=== PATIENT | male | born 1960 | race Two or more races ===

== ENCOUNTER 2025-03-02 22:07 | Inpatient (IN) | payer OTHER ==
[~2025-03-02] VITALS: Ht 167.6 cm; Wt 66.8 kg
--- NOTE | 2025-03-02 22:39 | ED.PDOC ---
History of Present Illness HPI Comments 65-year-old male with a history of diabetes and CAD status post CABG brought in by EMS from home for evaluation of hyperglycemia. Per EMS, patient's friends noticed he was less responsive than normal, and called 911. Patient states he has felt generally weak since yesterday, associated with nausea, vomiting and diarrhea. EMS reports patient's blood glucose was 401, and initial BP was 60 systolic. They administered 1 L of IV normal saline, which improved the patient's blood pressure to 122/79. Patient denies any abdominal pain, fever or dysuria. Chief Complaint: Hyperglycemia Time Seen by MD: 22:38 Reviewed Notes: Operations Staff Specialist Security Notes Allergies: Coded Allergies: NO KNOWN ALLERGIES (Unverified , 03/02/25) Information Source: Patient, Emergency Med Personnel Mode of Arrival: EMS Severity: Moderate Timing: Hours Duration: Since onset Prehospital treatment: IVF Past Medical History PAST MEDICAL HISTORY: CAD, DM Surgical History: CABG Family History Family History: Reviewed,noncontributory to illness Social History Smoker: Non-Smoker Alcohol: Denies ETOH Use Drugs: Denies Drug Use Lives In: Home Constitutional: reports: fatigue, weakness; denies: chills, diaphoresis, fever, malaise, sweats, others EENTM: denies: blurred vision, double vision, ear bleeding, ear discharge, ear drainage, ear pain, ear ringing, eye pain, eye redness, hearing loss, mouth pain, mouth swelling, nasal discharge, nose bleeding, nose congestion, nose pain, photophobia, tearing, throat pain, throat swelling, voice changes, others Respiratory: denies: cough, hemoptysis, orthopnea, SOB at rest, shortness of breath, SOB with excertion, stridor, wheezing, others Cardiovascular: denies: chest pain, dizzy spells, diaphoresis, Dyspnea on exertion, edema, irregular heart beat, left arm pain, lightheadedness, palpitations, PND, syncope, others Gastrointestinal: reports: nausea, vomiting; denies: abdomen distended, abdominal pain, blood streaked bowels, constipated, diarrhea, dysphagia, difficulty swallowing, hematemesis, melena, poor appetite, poor fluid intake, rectal bleeding, rectal pain, others Genitourinary: denies: burning, dysuria, flank pain, frequency, hematuria, incontinence, penile discharge, penile sore, pain, testicle pain, testicle swelling, urgency, others Neurological: denies: dizziness, fainting, headache, left sided numbness, left sided weakness, numbness, paresthesia, pre-existing deficit, right sided numbness, right sided weakness, seizure, speech problems, tingling, tremors, weakness, others Musculoskeletal: denies: back pain, gout, joint pain, joint swelling, muscle pain, muscle stiffness, neck pain, others Integumetry: denies: bruises, change in color, change in hair/nails, dryness, laceration, lesions, lumps, rash, wounds, others Allergic/Immunocompromised: denies: Difficulty Healing, Frequent Infections, Hives, Itching, others Hematologic/Lymphatic: denies: anemia, blood clots, easy bleeding, easy bruising, swollen glands, others Endocrine: denies: excessive hunger, excessive sweating, excessive thirst, excessive urination, flushing, intolerance to cold, intolerance to heat, unexplained weight gain, unexplained weight loss, others Psychiatric: denies: anxiety, bipolar disorder, depression, hopeless, panic disorder, schizophrenia, sleepless, suicidal, others Physical Exam General Appearance: No Apparent Distress HEENT: Other (Pupils and face symmetric. Moist mucous membranes.) Neck: Full Range of Motion, Normal Inspection Respiratory: Lungs Clear, No Accessory Muscle Use, No Respiratory Distress, Normal Breath Sounds Cardiovascular: No Edema, No JVD, Regular Rate/Rhythm Breast Exam: Deferred Gastrointestinal: Non Tender, Soft Genitalia: Deferred Pelvic: Deferred Rectal: Deferred Extremities: Normal inspection, Normal range of motion, Non-tender, No pedal edema Neurologic: Alert (Oriented x4), Normal Affect, Normal Mood, Other (No gross focal deficit) Cerebellar Function: NOT DONE Reflexes: NOT DONE Skin: Dry, Normal Color, Warm Lymphatic: NOT DONE Was a procedure done? Was a procedure done?: No EKG EKG : Comments Sinus rhythm, rate 97, normal intervals, normal axis, possible old inferior infarct, nonspecific T change. Differential Dx Considerations may include: Hyperglycemia, hyperglycemic hyperosmolar state, DKA, gastroenteritis, gastritis, colitis, diverticular disease, UTI, sepsis, electrolyte imbalance, hypovolemia, among others X-Ray, Labs, Meds, VS Vital Signs Date Time Temp Pulse Resp B/P (MAP) Pulse Ox O2 Delivery O2 Flow Rate FiO2 7/12/25 02:32 16 97 Room Air* 0 21 21 03/03/25 02:04 98 19 96 Room Air* 0 21 03/03/25 02:04 98.1 98 19 124/75 (91) 96 98.1 03/02/25 22:07 98.4 94 18 5/7 (6) 97 98.4 Lab Test 03/03/25 01:25 03/03/25 01:08 03/03/25 01:02 03/02/25 22:31 Range/Units Troponin I High Sensitivity 1204 *H 820 *H </=54 ng/L POC Glucose 367 H 370 H 70-106 mg/dl White Blood Count 12.9 H 4.4-10.8 10^3/uL Red Blood Count 5.06 4.5-5.90 10^6/uL Hemoglobin 15.0 13.5-17.5 g/dL Hematocrit 46.1 41.0-53.0 % Mean Corpuscular Volume 91.2 80.0-100.0 fL Mean Corpuscular Hemoglobin 29.7 28.0-32.0 pg Mean Corpuscular Hemoglobin Concent 32.6 32.0-36.0 g/dL Red Cell Distribution Width 15.2 H 11.8-14.3 % Platelet Count 171 140-450 10^3/uL Mean Platelet Volume 10.6 6.9-10.8 fL Neutrophils (%) (Auto) 85.1 H 37.0-80.0 % Lymphocytes (%) (Auto) 9.4 L 10.0-50.0 % Monocytes (%) (Auto) 5.4 0.0-12.0 % Eosinophils (%) (Auto) 0.0 0.0-7.0 % Basophils (%) (Auto) 0.1 0.0-2.0 % Neutrophils # (Auto) 11.0 H 1.6-8.6 10 ^3/uL Lymphocytes # (Auto) 1.2 0.4-5.4 10 ^3/uL Monocytes # (Auto) 0.7 0-1.3 10 ^3/uL Eosinophils # (Auto) 0 0-0.8 10 ^3/uL Basophils # (Auto) 0 0-0.2 10 ^3/uL Nucleated Red Blood Cells 0.0 % Sodium Level 139 136-145 mmol/L Potassium Level 6.2 *H 3.5-5.1 mmol/L Chloride Level 108 H 98-107 mmol/L Carbon Dioxide Level 17 L 20-31 mmol/L Anion Gap 14 5-15 Blood Urea Nitrogen 50 H 9-23 mg/dL Creatinine 4.10 H 0.700-1.30 mg/dL Glomerular Filtration Rate Calc 15 >90 mL/min BUN/Creatinine Ratio 12.2 10.0-20.0 Serum Glucose 386 H 74-106 mg/dL Lactic Acid Level 3.1 *H 0.4-2.0 mmol/L Calcium Level 9.5 8.7-10.4 mg/dL B-Type Natriuretic Peptide 90.43 0-100 pg/mL Beta-Hydroxybutyric Acid 0.576 H < 0.4 mmol/L Current Medications Medications (Trade) Dose Ordered Sig/Swetha Route Start Time Stop Time Status Last Admin Insulin Human Regular (InsuLIN R) 6 units ONCE ONCE IV 03/02/25 23:45 03/02/25 23:46 DC 03/03/25 01:04 Albuterol (Ventolin Medneb) 20 mg ONCE ONCE NEB 03/03/25 02:15 03/03/25 02:23 DC 03/03/25 02:32 PROCEDURE(s): CXRP - CHEST PORTABLE REASON: hypergly ORDER NUMBER(s): [id number], ACCESSION NUMBER(s): [id number] INDICATION: SOB TECHNIQUE: Frontal view of the chest. COMPARISON: None FINDINGS/IMPRESSION: The lungs are clear. The cardiomediastinal silhouette is unremarkable. Median sternotomy changes are noted. No pleural effusion or pneumothorax. No acute osseous abnormality. EDURE(s): ABPL - CT AB PEL WO CON-NO ORAL OR IV REASON: nvd ORDER NUMBER(s): [id number], ACCESSION NUMBER(s): [id number] Exam: CT CT AB PEL WO CON-NO ORAL OR IV History: nvd Comparison Study: None TECHNIQUE: Multidetector CT of the abdomen and pelvis was performed from lung bases to pubic symphysis. Imaging was performed without IV contrast. Axial, coronal, and sagittal multiplanar reformats were obtained from the axial data set by the technologist. RADIATION DOSE: CTDI vol 5.96 mGy. DLP 372.58 mGy.cm Findings: Limited evaluation of the solid organs in the absence of IV contrast. Liver: Unremarkable. Spleen: Unremarkable. Pancreas: Unremarkable. Gallbladder: Cholelithiasis/biliary sludge. Adrenals: Unremarkable Kidneys: Punctate nonobstructing right renal calculus. No hydronephrosis. Pelvic Viscera: Unremarkable. Vasculature: Mild atherosclerotic aortoiliac calcifications. Retroperitoneum: Shotty retroperitoneal nodes. Bowel: No bowel obstruction. The appendix is normal. Musculoskeletal: Unremarkable. Soft tissues: Unremarkable Lungs: Basilar atelectasis/scarring. Incompletely visualized median sternotomy changes and severe coronary artery calcifications versus stents. Impression: 1. No acute abdominopelvic abnormality identified. 2. Incidental findings as detailed. X-Ray, Labs, Meds, VS Comment 65-year-old male with a history of diabetes and CAD brought in by EMS from home complaining of nausea, vomiting, diarrhea and found to be hyperglycemic and initially hypotensive Vitals unremarkable Exam unremarkable Rhythm strip independently interpreted by me: Sinus rhythm, rate 94, no ectopy. Chest x-ray and CT abdomen and pelvis unremarkable for any acute findings CBC WBC 12.9, basic metabolic panel potassium 6.2, CO2 17, BUN 50, creatinine 4.1, glucose 386, BNP, troponin 820, lactate 3.1, beta hydroxybutyrate, ABG, UA Patient received 1 L 0.9 normal saline IV bolus administered by EMS EN route to the ED Patient treated with the following in the ED: Regular insulin 6 units IV, Zofran 4 mg IV, regular insulin 4 units IV, Lokelma 10 g p.o., sodium bicarb 50 mEq IV, calcium gluconate 1 g IV, albuterol 20 mg nebulized, aspirin 325 mg p.o. On re-evaluation, patient is alert with stable vitals. Plan is to admit or transfer the patient for IV hydration, electrolyte correction, glucose control and nephrology/cardiology evaluation At 2:45 a.m. I discussed the case with Dr. Guthrie, on-call for STEMI. He reviewed the EKG and stated this was not consistent with a STEMI. He recommended medical management. Case discussed with Dr. Phipps at [place] [facility], who authorized us to admit the patient here, as he currently appears unstable for transfer. Authorization [id number] Time of 1ST Reevaluation: 22:34 Reevaluation 1ST: Unchanged Time of 2ND Reevaluation: 02:37 Reevaluation 2ND: Improved Patient Education/Counseling: Diagnosis, Treatment Family Education/Counseling: No Family Present SEPSIS Sepsis Screen SEPSIS EXCLUSION NOTE: Sepsis Exclusion Note: Patient presents with SIRS criteria, but the SIRS response is attributed to [hyperglycemia, acute renal failure ], not a suspected infection. Sepsis bundle is not initiated at this time, due to this reason. Further management will focus on the treatment of the above condition (s). Physician Orders Chest Portable (03/02/25 23:34) Urinalysis (03/02/25 23:34) Electrocardigram (03/02/25 23:34) Abg W/ Co-Ox (03/02/25 23:34) Troponin-I Hs (03/03/25 02:34) Blood Culture (03/02/25 23:34) Ct Ab Pel Wo Con-No Oral Or Iv (03/02/25 23:34) Accucheck (03/03/25 02:20) Vital Signs Date Time Temp Pulse Resp B/P (MAP) Pulse Ox O2 Delivery O2 Flow Rate FiO2 03/03/25 02:32 16 97 Room Air* 0 21 21 03/03/25 02:04 98 19 96 Room Air* 0 21 03/03/25 02:04 98.1 98 19 124/75 (91) 96 98.1 03/02/25 22:07 98.4 94 18 5/7 (6) 97 98.4 Laboratory Tests Test 03/03/25 01:02 Lactic Acid Level 3.1 mmol/L (0.4-2.0) *H White Blood Count 12.9 10^3/uL (4.4-10.8) H Medications Medications Dose Ordered Sig/Swetha Route Start Time Stop Time Status Last Admin Dose Admin Albuterol 20 mg ONCE ONCE NEB 03/03/25 02:15 03/03/25 02:23 DC 03/03/25 02:32 Insulin Human Regular 6 units ONCE ONCE IV 03/02/25 23:45 03/02/25 23:46 DC 03/03/25 01:04 Departure 1 Departure Time of Disposition: 02:24 Impression: Primary Impression: Hyperglycemia Additional Impressions: Acute renal failure Qualified Codes: N17.9 - Acute kidney failure, unspecified Electrolyte imbalance Vomiting and diarrhea Non-STEMI (non-ST elevated myocardial infarction) Disposition: 02 SHORT TERM HOSPITAL Admit to: [facility] Condition: Serious Critical Care Note Critical Care Time?: Yes (35 min-critical care time only) Critical care comment: Critical care time including multiple bedside re-evaluations, review of lab and imaging studies, and discussion of the case with the accepting provider. Patient is high risk for hemodynamic and/or metabolic decompensation. Stability Stability form required: No Heart Score Heart Score: Heart Score Response (Comments) Value History N/A 0 EKG N/A 0 Age N/A 0 Risk Factors N/A 0 Troponin N/A 0 Total 0 I personally scribed for ANDREW IGNACIO MD ([email or web address]) on 03/02/25 at 22:39. Electronically submitted by Cleveland Desai ([facility]). ANDREW IGNACIO MD Mar 02, 2025 22:39
[2025-03-03] MEDS: InsuLIN REG 1unit/0.01ml Soln (100units/ml) IV ONE ×2 (01:04→03:18)
--- NOTE | 2025-03-03 01:39 | DVH ---
INDICATION: SOB TECHNIQUE: Frontal view of the chest. COMPARISON: None FINDINGS/IMPRESSION: The lungs are clear. The cardiomediastinal silhouette is unremarkable. Median sternotomy changes are noted. No pleural effusion or pneumothorax. No acute osseous abnormality.
[2025-03-03 01:42] LABS: Hematocrit 46.1 % (41.0-53.0); Hemoglobin 15.0 g/dL (13.5-17.5); Mean Corpuscular Hemoglobin 29.7 pg (28.0-32.0); Mean Corpuscular Volume 91.2 fL (80.0-100.0); Nucleated Red Blood Cells % 0.0 %
[2025-03-03 01:51] LABS: Anion Gap 14 (5-15); Sodium 139 mmol/L (136-145)
--- NOTE | 2025-03-03 01:51 | DVH ---
Exam: CT CT AB PEL WO CON-NO ORAL OR IV History: nvd Comparison Study: None TECHNIQUE: Multidetector CT of the abdomen and pelvis was performed from lung bases to pubic symphysi s. Imaging was performed without IV contrast. Axial, coronal, and sagittal multiplanar reformats were obtained from the axial data set by the technologist. RADIATION DOSE: CTDI vol 5.96 mGy. DLP 372.58 mGy.cm Findings: Limited evaluation of the solid organs in the absence of IV contrast. Liver: Unremarkable. Spleen: Unremarkable. Pancreas: Unremarkable. Gallbladder: Cholelithiasis/biliary sludge. Adrenals: Unremarkable Kidneys: Punctate nonobstructing right renal calculus. No hydronephrosis. Pelvic Viscera: Unremarkable. Vasculature: Mild atherosclerotic aortoiliac calcifications. Retroperitoneum: Shotty retroperitoneal nodes. Bowel: No bowel obstruction. The appendix is normal. Musculoskeletal: Unremarkable. Soft tissues: Unremarkable Lungs: Basilar atelectasis/scarring. Incompletely visualized median sternotomy changes and severe cor onary artery calcifications versus stents. Impression: 1. No acute abdominopelvic abnormality identified. 2. Incidental findings as detailed.
[2025-03-03 01:52] LABS: Calcium 9.5 mg/dL (8.7-10.4)
[2025-03-03 01:55] LABS: Carbon Dioxide 17 mmol/L (20-31); Chloride 108 mmol/L (98-107); Potassium 6.2 mmol/L (3.5-5.1)
[2025-03-03 01:56] LABS: BUN/Creatinine Ratio 12.2 (10.0-20.0)
[2025-03-03 01:57] LABS: Blood Urea Nitrogen 50 mg/dL (9-23); Glucose 386 mg/dL (74-106)
[2025-03-03 02:00] LABS: Lactic Acid w/Reflex 3.1 mmol/L (0.4-2.0)
[2025-03-03 02:04] VITALS: PULSE 98; RESP 19; O2SAT 96
[2025-03-03] MEDS: ALBUTEROL SULF 2.5 MG/0.5ML(0.5%) NEB SOLN NEB ONE (02:32)
[2025-03-03] MEDS: SODIUM ZIRCONIUM CYCL 10 GM PAK PO ONE (03:19)
[2025-03-03] MEDS: SODIUM BICARB 8.4% 50Meq/50ml SYR Vial IV ONE (03:36)
[2025-03-03] MEDS: CALCIUM GLUC 1,000mg/50ml-NS 50 ML IV ONE (04:20)
[2025-03-03] MEDS ORDERED: DOCUSATE SOD 100 MG CAP PO PRN (05:30)
[2025-03-03] MEDS ORDERED: ALBUTEROL SULF 2.5 MG/0.5ML(0.5%) NEB SOLN NEB PRN (05:30)
[2025-03-03] MEDS ORDERED: ACETAMINOPHEN 325 MG TAB PO PRN (05:30)
[2025-03-03] MEDS ORDERED: DEXTROSE (50%) 50ML SYRG IV PRN (05:30)
[2025-03-03] MEDS ORDERED: ONDANSETRON HCL 4 MG/2 ML VIAL IV PRN (05:30)
[2025-03-03] MEDS ORDERED: NITROGLYCERIN 0.4 MG SL TAB SL PRN (05:45)
[2025-03-03] MEDS ORDERED: MORPHINE SULFATE INJ 2 MG/ml SYRG IV PRN (05:45)
--- NOTE | 2025-03-03 05:45 | DVHHP2 ---
History of Present Illness Reason for Visit: Non-STEMI (non-ST elevated myocardial infarction) History of Present Illness The patient is a 65-year-old male with past medical history of Coronary artery disease diabetes mellitus presented to [facility] ED for evaluation of hyperglycemia. As reported, patient was noted to be altered, so EMS were called. Patient reports he has been feeling generalized weakness, associated with nausea, vomiting, and diarrhea, getting worse that prompted this visit. Patient was seen and evaluated in the ED, laboratory data shows WBC 12.9, platelets 171, sodium 139, potassium 6.2, BUN 50, creatinine 4.10, glucose 366, calcium 9.5, BNP 90.43, acetone 0.576, lactic acid 3.1, troponin 820 trending up, blood pressure 124/75, heart rate 98, temperature 98.1 F, O2 saturation 97% room..8, BNP 139.75, troponin 173, blood pressure 121/61, heart rate 83, temperature 98.5 F, O2 saturation 96% room air. Please see medication orders section in the computer. On my assessment, patient denied chest pain, no headache, no dizziness, currently on oxygen, no nausea, no vomiting, no fever, no chills. Patient was admitted for further evaluation and medical management. Past Medical History CAD, DM Past Surgical History CABG Family History Reviewed, noncontributory to the management of this case. Past Social History The patient lives at home, denies smoking, alcohol or illicit drugs abuse. Review of Systems Constitutional: Yes: Weakness, Other (Fatigue) Eyes: No: Pain, Vision change, Conjunctivae inflammation, Eyelid inflammation, Other, Redness ENT: No: Ear pain, Ear discharge, Nose pain, Nose discharge, Nose congestion, Mouth pain, Mouth swelling, Throat pain, Throat swelling, Other Respiratory: No: Cough, Dry, Shortness of breath, SOB with excertion, Wheezing, Hemoptysis, Pleuritic Pain, Sputum, Wheezing, Other Cardiovascular: No: Chest Pain, Palpitations, Orthopnea, Paroxysmal Noc. Dyspnea, Edema, Lt Headedness, Other Gastrointestinal: Nausea, Vomiting; No: Abdominal Pain, Diarrhea, Constipation, Melena, Hematochezia, Other Genitourinary: No Dysuria, No Frequency, No Incontinence, No Hematuria, No Retention, No Other Musculoskeletal: No: other, neck pain, shoulder pain, arm pain, back pain, hand pain, leg pain, foot pain Skin: No: Rash, Lesions, Jaundice, Bruising, Other Neurological: No: Weakness, Numbness, Incoordination, Change in speech, Confusion, Seizures, Other Allergies: Coded Allergies: NO KNOWN ALLERGIES (Unverified , 03/02/25) Medications Current Medications Medications Dose Ordered Sig/Swetha Route Start Time Stop Time Status Last Admin Dose Admin Aspirin 81 mg DAILY PO 03/04/25 06:00 Atorvastatin Calcium 10 mg HS PO 03/03/25 22:00 Ceftriaxone Sodium 50 ml @ 100 mls/hr DAILY@09 IV 03/04/25 06:00 Carvedilol 3.125 mg Q12HR PO 03/03/25 10:00 Clonidine HCl 0.1 mg Q4HP PRN PO 03/03/25 05:30 Diagnostic Test (Pha) 1 strip IQ4HR 03/03/25 08:00 Insulin Human Regular IQ4HR SC 03/03/25 08:00 Dextrose 50 ml UD PRN IV 03/03/25 05:30 Sodium Chloride 10 ml Q8HR IV 03/03/25 06:00 Acetaminophen/ Hydrocodone Bitart 1 tab Q4HP PRN PO 03/03/25 05:30 Ondansetron HCl 4 mg Q4HP PRN IV 03/03/25 05:30 Docusate Sodium 100 mg BIDPRN PRN PO 03/03/25 05:30 Acetaminophen 650 mg Q6HP PRN PO 03/03/25 05:30 Heparin Sodium/ Dextrose 250 ml @ 9 mls/hr Q24H IV 03/03/25 05:45 UNV Exam Vital Signs Vital Signs Date Time Temp Pulse Resp B/P (MAP) Pulse Ox O2 Delivery O2 Flow Rate FiO2 03/03/25 02:37 97 03/03/25 02:32 16 97 Room Air* 0 21 21 03/03/25 02:04 98.1 124/75 (91) 98.1 General Appearance: Alert, Oriented X3, Cooperative, No acute distress HEENT: Atraumatic, PERRLA, EOMI, Mucous membr. moist/pink Respiratory: Normal air movement Cardiovascular: Regular rate, Normal S1, Normal S2, No murmurs Abdominal: Normal bowel sounds, Soft, No tenderness, No hepatospenomegaly, No masses Extremities: No clubbing, No cyanosis, No edema, Normal pulses, No tenderness/swelling Skin: No rashes, No breakdown, No significant lesion Neuro: Normal speech, Normal tone, Sensation intact, Cranial nerves 3-12 NL, Reflexes 2+, Other (Generalized weakness) Psych/Mental Status: Mental status NL, Mood NL Labs/Xrays Labs Test 03/03/25 04:37 03/03/25 03:12 03/03/25 03:10 03/03/25 01:02 Range/Units Troponin I High Sensitivity 1683 *H </=54 ng/L POC Glucose 378 H 70-106 mg/dl Lactic Acid Level 3.9 *H 0.4-2.0 mmol/L White Blood Count 12.9 H 4.4-10.8 10^3/uL Red Blood Count 5.06 4.5-5.90 10^6/uL Hemoglobin 15.0 13.5-17.5 g/dL Hematocrit 46.1 41.0-53.0 % Mean Corpuscular Volume 91.2 80.0-100.0 fL Mean Corpuscular Hemoglobin 29.7 28.0-32.0 pg Mean Corpuscular Hemoglobin Concent 32.6 32.0-36.0 g/dL Red Cell Distribution Width 15.2 H 11.8-14.3 % Platelet Count 171 140-450 10^3/uL Mean Platelet Volume 10.6 6.9-10.8 fL Neutrophils (%) (Auto) 85.1 H 37.0-80.0 % Lymphocytes (%) (Auto) 9.4 L 10.0-50.0 % Monocytes (%) (Auto) 5.4 0.0-12.0 % Eosinophils (%) (Auto) 0.0 0.0-7.0 % Basophils (%) (Auto) 0.1 0.0-2.0 % Neutrophils # (Auto) 11.0 H 1.6-8.6 10 ^3/uL Lymphocytes # (Auto) 1.2 0.4-5.4 10 ^3/uL Monocytes # (Auto) 0.7 0-1.3 10 ^3/uL Eosinophils # (Auto) 0 0-0.8 10 ^3/uL Basophils # (Auto) 0 0-0.2 10 ^3/uL Nucleated Red Blood Cells 0.0 % Sodium Level 139 136-145 mmol/L Potassium Level 6.2 *H 3.5-5.1 mmol/L Chloride Level 108 H 98-107 mmol/L Carbon Dioxide Level 17 L 20-31 mmol/L Anion Gap 14 5-15 Blood Urea Nitrogen 50 H 9-23 mg/dL Creatinine 4.10 H 0.700-1.30 mg/dL Glomerular Filtration Rate Calc 15 >90 mL/min BUN/Creatinine Ratio 12.2 10.0-20.0 Serum Glucose 386 H 74-106 mg/dL Calcium Level 9.5 8.7-10.4 mg/dL B-Type Natriuretic Peptide 90.43 0-100 pg/mL Beta-Hydroxybutyric Acid 0.576 H < 0.4 mmol/L PATIENT: LISANDRO RICE ACCT: [id number] UNIT: [id number] : 1960 LOC: ER ROOM / BED: / AGE / SEX: 65 / M ADM STATUS: REG ER SERVICE [id number] ORDERING PHYSICIAN: ANDREW IGNACIO MD PROCEDURE(s): ABPL - CT AB PEL WO CON-NO ORAL OR IV REASON: nvd ORDER NUMBER(s): [id number], ACCESSION NUMBER(s): [id number] Exam: CT CT AB PEL WO CON-NO ORAL OR IV History: nvd Comparison Study: None TECHNIQUE: Multidetector CT of the abdomen and pelvis was performed from lung bases to pubic symphysis. Imaging was performed without IV contrast. Axial, coronal, and sagittal multiplanar reformats were obtained from the axial data set by the technologist. RADIATION DOSE: CTDI vol 5.96 mGy. DLP 372.58 mGy.cm Findings: Limited evaluation of the solid organs in the absence of IV contrast. Liver: Unremarkable. Spleen: Unremarkable. Pancreas: Unremarkable. Gallbladder: Cholelithiasis/biliary sludge. Adrenals: Unremarkable Kidneys: Punctate nonobstructing right renal calculus. No hydronephrosis. Pelvic Viscera: Unremarkable. Vasculature: Mild atherosclerotic aortoiliac calcifications. Retroperitoneum: Shotty retroperitoneal nodes. Bowel: No bowel obstruction. The appendix is normal. Musculoskeletal: Unremarkable. Soft tissues: Unremarkable Lungs: Basilar atelectasis/scarring. Incompletely visualized median sternotomy changes and severe coronary artery calcifications versus stents. Impression: 1. No acute abdominopelvic abnormality identified. 2. Incidental findings as detailed. ORDERING PHYSICIAN: ANDREW IGNACIO MD PROCEDURE(s): CXRP - CHEST PORTABLE REASON: hypergly ORDER NUMBER(s): [id number], ACCESSION NUMBER(s): [id number] INDICATION: SOB TECHNIQUE: Frontal view of the chest. COMPARISON: None FINDINGS/IMPRESSION: The lungs are clear. The cardiomediastinal silhouette is unremarkable. Median sternotomy changes are noted. No pleural effusion or pneumothorax. No acute osseous abnormality. SEPSIS Sepsis Screen Date sepsis recognized/suspect: Mar 02, 2025 Time Sepsis recognized/suspect: 2206 Recent Procedure: No On Antibiotic Therapy: No Respiratory Rate >20: No Heart Rate >90: No Temp<36 C (96.8 F) or >38.3 C: No SBP <90 or MAP <65 mmHG: No New Acute Mental Status Change: No Is the patient on CPAP, BIPAP,: No Physician Orders Chest Portable (03/02/25 23:34) Urinalysis (03/02/25 23:34) Electrocardigram (03/02/25 23:34) Abg W/ Co-Ox (03/02/25 23:34) Blood Culture (03/02/25 23:34) Ct Ab Pel Wo Con-No Oral Or Iv (03/02/25 23:34) Accucheck (03/03/25 02:20) Complete Blood Count (03/03/25 05:16) Comprehensive Metabolic Panel (03/03/25 05:16) Consistent Carb(Ccho)Diabetes (03/03/25 Breakfast) *[facility]. [facility] (03/03/25 05:16) Atorvastatin (Lipitor) (03/03/25 22:00) Ceftriaxone 1gm/50ml D5w (Rocephin) (03/03/25 05:30) Carvedilol Tablet (Coreg Tablet) (03/03/25 10:00) Clonidine Hcl Tablet (Catapres Tablet) (03/03/25 05:30) * Cardiology Consult (03/03/25 05:16) Glucose Blood (Accu-Chek Comfort Curve T (03/03/25 08:00) Insulin R (Human) (Insulin R) (03/03/25 08:00) Dextrose 50% Syringe (03/03/25 05:30) Allergies (03/03/25 05:16) Code Status (03/03/25 05:16) Sodium Chloride Lock (Saline Lock Ns) (03/03/25 06:00) Oxygen Per Hour (03/03/25 05:16) Hydrocodone-Acet 5/325mg Tab ([place] 5/32 (03/03/25 05:30) Ondansetron Hcl (Zofran) (03/03/25 05:30) Docusate Sodium Capsule (Colace Capsule) (03/03/25 05:30) Complete Blood Count (03/04/25 04:00) Comprehensive Metabolic Panel (03/04/25 04:00) Condition: Serious (03/03/25 05:16) Acetaminophen Tablet (Tylenol Tablet) (03/03/25 05:30) Bedrest With Bathroom Privileg (03/03/25 05:16) Sequential Compression Device (03/03/25 ) Aspirin Tablet (03/04/25 06:00) Ceftriaxone 1gm/50ml D5w (Rocephin) (03/04/25 06:00) Platelet Monitoring (03/03/25 05:39) Heparin Per Standardized Proce (03/03/25 05:39) Discontinue All Im Injections (03/03/25 05:39) PTPTT (03/03/25 05:39) Heparin Drip/D5w 100units/Ml (03/03/25 05:45) Stat Ekg For Chest Pain (03/03/25 05:39) Admit (03/03/25 05:42) Nitroglycerin Sublingual (Ntrostat Subli (03/03/25 05:45) Morphine Sulfate Injection (03/03/25 05:45) Notify Md Of Changes From Base (03/03/25 05:42) Tariff Compiling Clerk For 24 Hours (03/03/25 05:42) Emergency Dysrhythmia Protocol (03/03/25 05:42) Rhythm Strips Once Every Shift (03/03/25 05:42) Oxygen By Nasal Cannula (03/03/25 05:42) Vital Signs Date Time Temp Pulse Resp B/P (MAP) Pulse Ox O2 Delivery O2 Flow Rate FiO2 03/03/25 02:37 97 03/03/25 02:32 16 97 Room Air* 0 21 21 03/03/25 02:04 98 19 96 Room Air* 0 21 03/03/25 02:04 98.1 98 19 124/75 (91) 96 98.1 03/02/25 22:07 98.4 94 18 5/7 (6) 97 98.4 Laboratory Tests Test 03/03/25 01:02 03/03/25 03:10 Lactic Acid Level 3.1 mmol/L (0.4-2.0) *H 3.9 mmol/L (0.4-2.0) *H White Blood Count 12.9 10^3/uL (4.4-10.8) H Medications Medications Dose Ordered Sig/Swetha Route Start Time Stop Time Status Last Admin Dose Admin Albuterol 20 mg ONCE ONCE NEB 03/03/25 02:15 03/03/25 02:23 DC 03/03/25 02:32 20 MG Aspirin 325 mg ONCE ONCE PO 03/03/25 02:15 03/03/25 02:23 DC 03/03/25 03:19 325 MG Calcium Gluconate/ Sodium Chloride 50 ml @ 100 mls/hr ONCE ONCE IV 03/03/25 02:15 03/03/25 02:44 DC 03/03/25 04:20 100 MLS/HR Insulin Human Regular 4 units ONCE ONCE IV 03/03/25 02:15 03/03/25 02:23 DC 03/03/25 03:18 4 UNITS Insulin Human Regular 6 units ONCE ONCE IV 03/02/25 23:45 03/02/25 23:46 DC 03/03/25 01:04 6 UNITS Sodium Bicarbonate 50 ml ONCE ONCE IV 03/03/25 02:15 03/03/25 02:23 DC 03/03/25 03:36 50 ML Zirconium Oxide 10 gm ONCE ONCE PO 03/03/25 02:15 03/03/25 02:23 DC 03/03/25 03:19 10 GM Assessment/Plan Assessment/Plan Acute renal failure Diabetes mellitus with hyperglycemia Acute kidney failure, unspecified Electrolyte imbalance Vomiting and diarrhea Non-STEMI (non-ST elevated myocardial infarction) Plan 1. Admit to telemetry unit 2. Breathing treatment 3. Pain control management 4. Management of fluids and electrolytes 5. Consultation for Nephrology/cardiology 6. Diagnostic tests chest x-ray 7. DVT prophylaxis on heparin drip 8. Repeat labs CBC, CMP in a.m. 9. Continue with current medical management 10. Treatment plan discussed with patient and RN. Patient verbalized understanding. Plan discussed with: Patient, Other (RN) My Orders Orders - DARRELL MEEKS DNP Procedure Category Date Status Time Complete Blood Count LAB 03/03/25 Logged 05:16 Comprehensive LAB 03/03/25 Logged Metabolic Panel 05:16 Consistent DIET 03/03/25 Transmitted Carb(Ccho)Diabetes Breakfast *Dr. [facility] CONS 03/03/25 Transmitted -[place] 05:16 Atorvastatin (Lipitor) PHA 03/03/25 In Process 22:00 Ceftriaxone 1gm/50ml PHA 03/03/25 In Process D5w (Rocephin) 05:30 Carvedilol Tablet PHA 03/03/25 In Process (Coreg Tablet) 10:00 Clonidine Hcl Tablet PHA 03/03/25 In Process (Catapres Tablet) 05:30 * Cardiology Consult CONS 03/03/25 Transmitted 05:16 Glucose Blood PHA 03/03/25 In Process (Accu-Chek Comfort 08:00 Insulin R (Human) PHA 03/03/25 In Process (Insulin R) 08:00 Dextrose 50% Syringe PHA 03/03/25 In Process 05:30 Allergies VAZQUEZ 03/03/25 In Process 05:16 Code Status CODE 03/03/25 Transmitted 05:16 Sodium Chloride Lock PHA 03/03/25 In Process (Saline Lock Ns) 06:00 Oxygen Per Hour RT 03/03/25 Transmitted 05:16 Hydrocodone-Acet PHA 03/03/25 In Process 5/325mg Tab ([place] 05:30 Ondansetron Hcl PHA 03/03/25 In Process (Zofran) 05:30 Docusate Sodium PHA 03/03/25 In Process Capsule (Colace 05:30 Complete Blood Count LAB 03/04/25 Verified 04:00 Comprehensive LAB 03/04/25 Verified Metabolic Panel 04:00 Condition: Serious VAZQUEZ 03/03/25 In Process 05:16 Acetaminophen Tablet PHA 03/03/25 In Process (Tylenol Tablet) 05:30 Bedrest With Bathroom VAZQUEZ 03/03/25 In Process Privileg 05:16 Sequential VAZQUEZ 03/03/25 In Process Compression Device Aspirin Tablet PHA 03/04/25 In Process 06:00 Ceftriaxone 1gm/50ml PHA 03/04/25 In Process D5w (Rocephin) 06:00 Platelet Monitoring [facility] 03/03/25 In Process 05:39 Heparin Per [facility] 03/03/25 In Process Standardized Proce 05:39 Discontinue All Im [facility] 03/03/25 In Process Injections 05:39 PTPTT LAB 03/03/25 Logged 05:39 Heparin Drip/D5w PHA 03/03/25 Logged 100units/Ml 05:45 Stat Ekg For Chest [facility] 03/03/25 In Process Pain 05:39 Admit ADMIT 03/03/25 Verified 05:42 Nitroglycerin [facility] 03/03/25 Verified Sublingual (Ntrostat 05:45 Morphine Sulfate [facility] 03/03/25 Verified Injection 05:45 Notify Md Of Changes [facility] 03/03/25 Verified From Base 05:42 Tariff Compiling Clerk For [facility] 03/03/25 Verified 24 Hours 05:42 Emergency Dysrhythmia [facility] 03/03/25 Verified Protocol 05:42 Rhythm Strips Once [facility] 03/03/25 Verified Every Shift 05:42 Oxygen By Nasal RT 03/03/25 Verified Cannula 05:42 Problem List: (1) Acute renal failure (2) Diabetes mellitus with hyperglycemia (3) Acute kidney failure, unspecified (4) Vomiting and diarrhea (5) Electrolyte imbalance (6) Non-STEMI (non-ST elevated myocardial infarction) Date of Service: Mar 03, 2025 Billing Provider: DARRELL MEEKS DNP Common Visit Codes: [id number] INP/OBS CARE (HIGH) DARRELL MEEKS DNP Mar 03, 2025 05:45
[2025-03-03] MEDS: cefTRIAXone 1GM/50ML D5W 50 ML IV ONE (06:05)
[2025-03-03] MEDS: SODIUM CHLOR 0.9% PF (SALINE LOCK) 10ML VIAL/SYR IV SCH (06:06)
[2025-03-03 07:09] LABS: Hematocrit 40.4 % (41.0-53.0); Hemoglobin 13.2 g/dL (13.5-17.5); Mean Corpuscular Hemoglobin 29.4 pg (28.0-32.0); Mean Corpuscular Volume 90.2 fL (80.0-100.0); Nucleated Red Blood Cells % 0.0 %
[2025-03-03 07:23] LABS: Alanine Aminotransferase 29 U/L (7-40); Albumin 4.6 g/dL (3.2-4.8); Alkaline Phosphatase 76 U/L (46-116); Anion Gap 18 (5-15); BUN/Creatinine Ratio 12.9 (10.0-20.0); Bilirubin, Total 0.6 mg/dL (0.2-1.0); Calcium 9.6 mg/dL (8.7-10.4); Chloride 105 mmol/L (98-107); Sodium 140 mmol/L (136-145); Total Protein 7.2 g/dL (5.7-8.2)
[2025-03-03 07:27] LABS: Blood Urea Nitrogen 55 mg/dL (9-23); Carbon Dioxide 17 mmol/L (20-31); Glucose 383 mg/dL (74-106); Potassium 5.5 mmol/L (3.5-5.1)
[2025-03-03 07:30] LABS: INR 1.05 (0.9-1.15); Partial Thromboplastin Time 27.0 SEC (24.5-34.5); Prothrombin Time 11.1 sec (9.3-11.8)
[2025-03-03 07:40] VITALS: PULSE 92; RESP 15; O2SAT 99
[2025-03-03] MEDS: HEPARIN DRIP/D5W 100UNITS/ML 250 ML IV SCH ×3 (08:11→21:34)
[2025-03-03] MEDS: InsuLIN REG 1unit/0.01ml Soln (100units/ml) SC SCH (08:30)
[2025-03-03] MEDS: ACCU-CHEK COMFORT CURVE STRIP VI SCH (08:31)
[2025-03-03] MEDS: CARVEDILOL 3.125 MG TAB PO SCH (10:18)
--- NOTE | 2025-03-03 11:27 | DVHINCON2 ---
Date Seen: Mar 03, 2025 Referring Physician Idania Reason for Consultation NSTEMI History of Present Illness 65-year-old male with PMH for diabetes, HLD, HTN, CAD s/p 3 V CABG 03/2023, CKD presents to the hospital with abdominal pain diarrhea altered mental status, hyperglycemic. Patient poor historian, information gathered from chart review as well. Apparently EMS was called as patient was feeling generalized weak nausea vomiting diarrhea getting worse and seem to be getting more lethargic. On presentation patient found have elevated creatinine 4.10, K6.2, glucose 386, BNP 90, troponins trending 820, 1204, 1683. Patient denies any chest pain, palpitation, shortness of breath. Denies following up with Cardiology specialty recently though states had new consult coming up with [place]. Patient was following up at [facility] in the past. EKG reviewed and shows sinus rhythm at 97 beats per minute with minimal ST and T-wave abnormality inferiorly. No previous EKGs to review. Past Medical History As stated above Past Surgical History As stated above Family History Denies pertinent family cardiac history Social History Denies illicit drug use, tobacco use, or ETOH abuse Allergies: Coded Allergies: NO KNOWN ALLERGIES (Unverified , 03/02/25) Current Medications Current Medications Medications (Trade) Dose Ordered Sig/Swetha Route PRN Reason Start Time Stop Time Status Last Admin Aspirin 81 mg DAILY PO 03/04/25 06:00 Albuterol (Ventolin Medneb) 2.5 mg Q4HPRN PRN NEB SHORTNESS OF BREATH 03/03/25 05:30 03/03/25 05:31 DC Atorvastatin Calcium (Lipitor) 10 mg HS PO 03/03/25 22:00 Ceftriaxone Sodium 50 ml @ 100 mls/hr DAILY@09 IV 03/04/25 06:00 Carvedilol (Coreg Tablet) 3.125 mg Q12HR PO 03/03/25 10:00 03/03/25 10:18 Clonidine HCl (Catapres Tablet) 0.1 mg Q4HP PRN PO SBP>150 03/03/25 05:30 Diagnostic Test (Pha) (Accu-Chek Comfort Curve T) 1 strip IQ4HR 03/03/25 08:00 03/03/25 08:31 Insulin Human Regular (InsuLIN R) IQ4HR SC 03/03/25 08:00 03/03/25 08:30 Dextrose 50 ml UD PRN IV Blood Sugar LESS THAN 60 03/03/25 05:30 Sodium Chloride (Saline Lock Ns) 10 ml Q8HR IV 03/03/25 06:00 03/03/25 06:06 Acetaminophen/ Hydrocodone Bitart ([place] 5/325MG Tab) 1 tab Q4HP PRN PO MODERATE PAIN (4-6 PAIN SCALE) 03/03/25 05:30 Ondansetron HCl (Zofran) 4 mg Q4HP PRN IV NAUSEA / VOMITING 03/03/25 05:30 Docusate Sodium (Colace Capsule) 100 mg BIDPRN PRN PO FOR CONSTIPATION 03/03/25 05:30 Acetaminophen (Tylenol Tablet) 650 mg Q6HP PRN PO PAIN SCALE 1-3 OR TEMP>100.4 03/03/25 05:30 Heparin Sodium/ Dextrose 250 ml @ 9 mls/hr Q24H IV 03/03/25 05:45 03/03/25 08:11 Nitroglycerin (Ntrostat Sublingual) 0.4 mg Q5MINP PRN SL FOR CHEST PAIN 03/03/25 05:45 Morphine Sulfate 2 mg Q30M PRN IV FOR CHEST PAIN 03/03/25 05:45 Review of Systems Constitutional: No: Fever, Chills, Sweats, Weakness, Malaise, Other Eyes: No: Pain, Vision change, Conjunctivae inflammation, Eyelid inflammation, Other, Redness ENT: No: Ear pain, Ear discharge, Nose pain, Nose discharge, Nose congestion, Mouth pain, Mouth swelling, Throat pain, Throat swelling, Other Respiratory: No: Cough, Dry, Shortness of breath, SOB with exertion, Wheezing, Hemoptysis, Pleuritic Pain, Sputum, Wheezing, Other Cardiovascular: ; No: Chest Pain Palpitations, Orthopnea, Paroxysmal Noc. , Edema, Lt Headedness, Other positive: Dyspnea Gastrointestinal: No: Nausea, Vomiting, , Constipation, Melena, Hematochezia, Other positive: Abdominal Pain, Diarrhea Genitourinary: No Dysuria, No Frequency, No Incontinence, No Hematuria, No Retention, No Other Musculoskeletal: neck pain; No: other, shoulder pain, arm pain, back pain, hand pain, leg pain, foot pain Skin: No: Rash, Lesions, Jaundice, Bruising, Other Neurological: Other headache.); No: Weakness, Numbness, Incoordination, Change in speech, Confusion, Seizures(positive: Dizziness, Vital Signs Vital Signs Date Time Temp Pulse Resp B/P (MAP) Pulse Ox O2 Delivery O2 Flow Rate FiO2 03/03/25 11:07 95 101/61 03/03/25 10:00 13 97 03/03/25 07:40 Room Air* 0 21 03/03/25 07:40 98.4 98.4 Physical Exam General appearance: Patient is well-developed, well-nourished, in no acute distress. HEENT: Exam shows: Normocephalic, atraumatic, PERRLA, EOMI Neck: Supple, no bruits Chest: Equal chest excursion bilaterally. Breath sounds normal-no rales or wheezes. Heart: Rhythm: Regular rate; no murmur or gallop Abdomen: Exam shows: Soft, nontender, nondistended Musculoskeletal: No clubbing, no cyanosis, no lower extremity edema Dermatology: Skin warm, moist. Neurological: Exam shows: Alert and oriented x4, normal speech Available prior records, labs, EKG, rhythm strips reviewed and interpreted Labs/Diagnostic Data Labs Test 03/03/25 08:28 03/03/25 06:49 03/03/25 04:37 03/03/25 03:10 Range/Units POC Glucose 339 H 70-106 mg/dl White Blood Count 11.3 H 4.4-10.8 10^3/uL Red Blood Count 4.48 L 4.5-5.90 10^6/uL Hemoglobin 13.2 L 13.5-17.5 g/dL Hematocrit 40.4 #L 41.0-53.0 % Mean Corpuscular Volume 90.2 80.0-100.0 fL Mean Corpuscular Hemoglobin 29.4 28.0-32.0 pg Mean Corpuscular Hemoglobin Concent 32.6 32.0-36.0 g/dL Red Cell Distribution Width 14.6 H 11.8-14.3 % Platelet Count 137 L 140-450 10^3/uL Mean Platelet Volume 10.5 6.9-10.8 fL Neutrophils (%) (Auto) 84.9 H 37.0-80.0 % Lymphocytes (%) (Auto) 7.8 L 10.0-50.0 % Monocytes (%) (Auto) 7.1 0.0-12.0 % Eosinophils (%) (Auto) 0.0 0.0-7.0 % Basophils (%) (Auto) 0.2 0.0-2.0 % Neutrophils # (Auto) 9.6 H 1.6-8.6 10 ^3/uL Lymphocytes # (Auto) 0.9 0.4-5.4 10 ^3/uL Monocytes # (Auto) 0.8 0-1.3 10 ^3/uL Eosinophils # (Auto) 0 0-0.8 10 ^3/uL Basophils # (Auto) 0 0-0.2 10 ^3/uL Nucleated Red Blood Cells 0.0 % Prothrombin Time 11.1 9.3-11.8 sec Prothrombin Time INR 1.05 0.9-1.15 Activated Partial Thromboplast Time 27.0 24.5-34.5 SEC Sodium Level 140 136-145 mmol/L Potassium Level 5.5 H 3.5-5.1 mmol/L Chloride Level 105 98-107 mmol/L Carbon Dioxide Level 17 L 20-31 mmol/L Anion Gap 18 H 5-15 Blood Urea Nitrogen 55 H 9-23 mg/dL Creatinine 4.27 H 0.700-1.30 mg/dL Glomerular Filtration Rate Calc 15 >90 mL/min BUN/Creatinine Ratio 12.9 10.0-20.0 Serum Glucose 383 H 74-106 mg/dL Calcium Level 9.6 8.7-10.4 mg/dL Total Bilirubin 0.6 0.2-1.0 mg/dL Aspartate Amino Transferase (AST) 37 13-40 U/L Alanine Aminotransferase (ALT) 29 7-40 U/L Alkaline Phosphatase 76 46-116 U/L Total Protein 7.2 5.7-8.2 g/dL Albumin 4.6 3.2-4.8 g/dL Troponin I High Sensitivity 1683 *H </=54 ng/L Lactic Acid Level 3.9 *H 0.4-2.0 mmol/L Test 03/03/25 01:02 Range/Units B-Type Natriuretic Peptide 90.43 0-100 pg/mL Beta-Hydroxybutyric Acid 0.576 H < 0.4 mmol/L Assessment * NSTEMI - Denies CP. Known CAD. Continue on heparin drip. Follow up ECHO. Continue aspirin and statin. Continue medical management for know given elevated creatinine. Patient may need ischemic workup in the future. * CAD S/P 3V CABG 2022 continue aspirin and statin * KAILYN on CKD, Hyperkalemia - Nephrology board * Uncontrolled Diabetes management per priry team * HTN - stable on current regimen, continue trending * Diarrhea, N/V - management per primary team. * Medication noncompliance - advised compliance Case Discussed with Dr Guthrie. Continue medical management for now given elevated creatinine, continue monitoring. Follow up echo. Critical care, time spent: 45 minutes This medical document was created using an electronic medical record system with voice recognition software and computerized dictation system. Although this document has been carefully reviewed, there might still be some phonetic and typographical errors. Occasional wrong-word or ``sound-alike substitutions may have occurred due to the inherent limitations of voice recognition software. These areas are purely typographical due to imperfections of the software programs and do not reflect any compromise in the patient's medical care. Please read the chart carefully and recognize, using context, where these substitutions have occurred. Thank you for allowing me to participate in the management of this patient. The treatment plan was discussed with and agreed upon by patient/family including requesting consultants and ordering of imaging/procedures. Plan discussed with: Patient NYHA Physical activity limitations: NA Date of Service: Mar 03, 2025 Billing Provider: MI [facility] Cardiology Common Codes: [id number] INP/OBS CARE (High), [id number] CARE 30-74 MIN MI MIDDLETON Mar 03, 2025 11:27
[2025-03-03] MEDS: SODIUM CHLORIDE 0.9% 1,000 ML IV SCH (11:38)
--- NOTE | 2025-03-03 12:17 | DVHINCON2 ---
Date of service: Mar 03, 2025 Referring Physician john Reason for Consultation theodore History of Present Illness 65 years old male with past medical history of diabetes for the past 23 years, toe amputation, coronary artery disease status post CABG, hypertension, possible underlying Chronic kidney disease however he does not give any history of Chronic kidney disease presented with chief complaints of nausea, vomiting, diar kera that started past Wednesday associated with poor p.o. intake He is also found to have elevated lactic acid, positive troponins for which he is on heparin drip, high potassium on admission 6.2 that is down to 5.5 currently. Patient reports urinating okay However patient did not get any IV fluids in emergency room Found to be hyperglycemic Past Medical History As per HPI Past Surgical History As per HPI Allergies: Coded Allergies: NO KNOWN ALLERGIES (Unverified , 03/02/25) Current Medications Current Medications Medications (Trade) Dose Ordered Sig/Swetha Route PRN Reason Start Time Stop Time Status Last Admin Aspirin 81 mg DAILY PO 03/04/25 06:00 Albuterol (Ventolin Medneb) 2.5 mg Q4HPRN PRN NEB SHORTNESS OF BREATH 03/03/25 05:30 03/03/25 05:31 DC Atorvastatin Calcium (Lipitor) 10 mg HS PO 03/03/25 22:00 Ceftriaxone Sodium 50 ml @ 100 mls/hr DAILY@09 IV 03/04/25 06:00 Carvedilol (Coreg Tablet) 3.125 mg Q12HR PO 03/03/25 10:00 03/03/25 10:18 Clonidine HCl (Catapres Tablet) 0.1 mg Q4HP PRN PO SBP>150 03/03/25 05:30 Diagnostic Test (Pha) (Accu-Chek Comfort Curve T) 1 strip IQ4HR 03/03/25 08:00 03/03/25 08:31 Insulin Human Regular (InsuLIN R) IQ4HR SC 03/03/25 08:00 03/03/25 08:30 Dextrose 50 ml UD PRN IV Blood Sugar LESS THAN 60 03/03/25 05:30 Sodium Chloride (Saline Lock Ns) 10 ml Q8HR IV 03/03/25 06:00 03/03/25 06:06 Acetaminophen/ Hydrocodone Bitart (Nellis 5/325MG Tab) 1 tab Q4HP PRN PO MODERATE PAIN (4-6 PAIN SCALE) 03/03/25 05:30 Ondansetron HCl (Zofran) 4 mg Q4HP PRN IV NAUSEA / VOMITING 03/03/25 05:30 Docusate Sodium (Colace Capsule) 100 mg BIDPRN PRN PO FOR CONSTIPATION 03/03/25 05:30 Acetaminophen (Tylenol Tablet) 650 mg Q6HP PRN PO PAIN SCALE 1-3 OR TEMP>100.4 03/03/25 05:30 Heparin Sodium/ Dextrose 250 ml @ 9 mls/hr Q24H IV 03/03/25 05:45 03/03/25 08:11 Nitroglycerin (Ntrostat Sublingual) 0.4 mg Q5MINP PRN SL FOR CHEST PAIN 03/03/25 05:45 Morphine Sulfate 2 mg Q30M PRN IV FOR CHEST PAIN 03/03/25 05:45 Sodium Chloride 1,000 ml @ 100 mls/hr Q10H IV 03/03/25 11:15 03/03/25 11:38 Review of Systems As documented in HPI H&P Exam Vital Signs/I&O Vital Sign Date Time Temp Pulse Resp B/P (MAP) Pulse Ox O2 Delivery O2 Flow Rate FiO2 03/03/25 11:07 95 101/61 03/03/25 10:00 13 97 03/03/25 07:40 Room Air* 0 21 03/03/25 07:40 98.4 98.4 Physical Exam General-not in any distress HEENT-normocephalic, no icterus, no pallor, neck supple Respiratory-fair air entry bilateral, no rhonchi, no wheeze [id number] heard, no murmurs appreciated Abdominal-soft, nontender, nondistended Musculoskeletal-no pedal edema, toe amputation left leg,heal wound rt Genitourinary-deferred Neuro-awake alert oriented x3, Psychiatric-not agitated, cooperative, Labs/Diagnostic Data Labs/Diagnostic Data Laboratory Tests Test 03/03/25 08:28 03/03/25 06:49 03/03/25 04:37 03/03/25 03:12 Range/Units POC Glucose 339 H 378 H 70-106 mg/dl White Blood Count 11.3 H 4.4-10.8 10^3/uL Red Blood Count 4.48 L 4.5-5.90 10^6/uL Hemoglobin 13.2 L 13.5-17.5 g/dL Hematocrit 40.4 #L 41.0-53.0 % Mean Corpuscular Volume 90.2 80.0-100.0 fL Mean Corpuscular Hemoglobin 29.4 28.0-32.0 pg Mean Corpuscular Hemoglobin Concent 32.6 32.0-36.0 g/dL Red Cell Distribution Width 14.6 H 11.8-14.3 % Platelet Count 137 L 140-450 10^3/uL Mean Platelet Volume 10.5 6.9-10.8 fL Neutrophils (%) (Auto) 84.9 H 37.0-80.0 % Lymphocytes (%) (Auto) 7.8 L 10.0-50.0 % Monocytes (%) (Auto) 7.1 0.0-12.0 % Eosinophils (%) (Auto) 0.0 0.0-7.0 % Basophils (%) (Auto) 0.2 0.0-2.0 % Neutrophils # (Auto) 9.6 H 1.6-8.6 10 ^3/uL Lymphocytes # (Auto) 0.9 0.4-5.4 10 ^3/uL Monocytes # (Auto) 0.8 0-1.3 10 ^3/uL Eosinophils # (Auto) 0 0-0.8 10 ^3/uL Basophils # (Auto) 0 0-0.2 10 ^3/uL Nucleated Red Blood Cells 0.0 % Prothrombin Time 11.1 9.3-11.8 sec Prothrombin Time INR 1.05 0.9-1.15 Activated Partial Thromboplast Time 27.0 24.5-34.5 SEC Sodium Level 140 136-145 mmol/L Potassium Level 5.5 H 3.5-5.1 mmol/L Chloride Level 105 98-107 mmol/L Carbon Dioxide Level 17 L 20-31 mmol/L Anion Gap 18 H 5-15 Blood Urea Nitrogen 55 H 9-23 mg/dL Creatinine 4.27 H 0.700-1.30 mg/dL Glomerular Filtration Rate Calc 15 >90 mL/min BUN/Creatinine Ratio 12.9 10.0-20.0 Serum Glucose 383 H 74-106 mg/dL Calcium Level 9.6 8.7-10.4 mg/dL Total Bilirubin 0.6 0.2-1.0 mg/dL Aspartate Amino Transferase (AST) 37 13-40 U/L Alanine Aminotransferase (ALT) 29 7-40 U/L Alkaline Phosphatase 76 46-116 U/L Total Protein 7.2 5.7-8.2 g/dL Albumin 4.6 3.2-4.8 g/dL Troponin I High Sensitivity 1683 *H </=54 ng/L Test 03/03/25 03:10 03/03/25 01:25 03/03/25 01:08 03/03/25 01:02 Range/Units Lactic Acid Level 3.9 *H 3.1 *H 0.4-2.0 mmol/L Troponin I High Sensitivity 1204 *H 820 *H </=54 ng/L POC Glucose 367 H 70-106 mg/dl White Blood Count 12.9 H 4.4-10.8 10^3/uL Red Blood Count 5.06 4.5-5.90 10^6/uL Hemoglobin 15.0 13.5-17.5 g/dL Hematocrit 46.1 41.0-53.0 % Mean Corpuscular Volume 91.2 80.0-100.0 fL Mean Corpuscular Hemoglobin 29.7 28.0-32.0 pg Mean Corpuscular Hemoglobin Concent 32.6 32.0-36.0 g/dL Red Cell Distribution Width 15.2 H 11.8-14.3 % Platelet Count 171 140-450 10^3/uL Mean Platelet Volume 10.6 6.9-10.8 fL Neutrophils (%) (Auto) 85.1 H 37.0-80.0 % Lymphocytes (%) (Auto) 9.4 L 10.0-50.0 % Monocytes (%) (Auto) 5.4 0.0-12.0 % Eosinophils (%) (Auto) 0.0 0.0-7.0 % Basophils (%) (Auto) 0.1 0.0-2.0 % Neutrophils # (Auto) 11.0 H 1.6-8.6 10 ^3/uL Lymphocytes # (Auto) 1.2 0.4-5.4 10 ^3/uL Monocytes # (Auto) 0.7 0-1.3 10 ^3/uL Eosinophils # (Auto) 0 0-0.8 10 ^3/uL Basophils # (Auto) 0 0-0.2 10 ^3/uL Nucleated Red Blood Cells 0.0 % Sodium Level 139 136-145 mmol/L Potassium Level 6.2 *H 3.5-5.1 mmol/L Chloride Level 108 H 98-107 mmol/L Carbon Dioxide Level 17 L 20-31 mmol/L Anion Gap 14 5-15 Blood Urea Nitrogen 50 H 9-23 mg/dL Creatinine 4.10 H 0.700-1.30 mg/dL Glomerular Filtration Rate Calc 15 >90 mL/min BUN/Creatinine Ratio 12.2 10.0-20.0 Serum Glucose 386 H 74-106 mg/dL Calcium Level 9.5 8.7-10.4 mg/dL B-Type Natriuretic Peptide 90.43 0-100 pg/mL Beta-Hydroxybutyric Acid 0.576 H < 0.4 mmol/L Test 03/02/25 22:31 Range/Units POC Glucose 370 H 70-106 mg/dl Assessment Acute kidney injury likely hemodynamic etiology unknown baseline renal function Underlying Chronic kidney disease secondary to diabetic nephropathy however no baseline available patient follows [facility] Nausea vomiting diarrhea for one day Coronary artery disease status post CABG Type 2 diabetes for 23 years NSTEMI Punctate nonobstructing right renal calculus Recommendations NS IV at 100 cc Check bladder scan rule out retention Urine workup as ordered CT scan abdomen pelvis showed no hydronephrosis Nonoliguric for now We will follow closely Reviewed vital signs, lab work, imaging studies, medications, microbiology, other physician recommendations Total time spent 80 minutes More than 50% of the time spent providing direct [id number] care . Thank you for allowing me to participate in the care of your patient. Plan discussed with: Patient CLAYTON CABA MD Mar 03, 2025 12:17
[2025-03-03 13:50] VITALS: BP 99/61; PULSE 86; RESP 20; TEMP 98.3; O2SAT 98
[2025-03-03 16:13] LABS: INR 1.06 (0.9-1.15); Partial Thromboplastin Time 61.9 SEC (24.5-34.5); Prothrombin Time 11.2 sec (9.3-11.8)
[2025-03-03 17:12] VITALS: BP 100/61; PULSE 79; RESP 20; TEMP 97.7; O2SAT 99
--- NOTE | 2025-03-03 18:08 | DVHPN2 ---
Subjective Patient denies any symptoms at this time Reviewed: Care Plan, H&P, Labs, Medications Changes from previous H/P or p: No Changes General: Per HPI Eyes: No Pain, No Vision change, No Conjunctivae inflammation, No Eyelid inflammation, No Other, No Redness ENT: No Ear pain, No Ear discharge, No Nose pain, No Nose discharge, No Nose congestion, No Mouth pain, No Mouth swelling, No Throat pain, No Throat swelling, No Other Cardiovascular: No Chest Pain, No Palpitations, No Orthopnea, No Paroxysmal Noc. Dyspnea, No Edema, No Lt Headedness, No Other Respiratory: No Cough, No Dry, No Shortness of breath, No SOB with excertion, No Wheezing, No Hemoptysis, No Pleuritic Pain, No Sputum, No Other Gastrointestinal: Nausea, Vomiting; No Abdominal Pain, No Diarrhea, No Constipation, No Melena, No Hematochezia, No Other Genitourinary: No Dysuria, No Frequency, No Incontinence, No Hematuria, No Retention, No Other Musculoskeletal: No other, No neck pain, No shoulder pain, No arm pain, No back pain, No hand pain, No leg pain, No foot pain Skin: No Rash, No Lesions, No Jaundice, No Bruising, No Other Objective Vitals Vital Signs Date Time Temp Pulse Resp B/P (MAP) Pulse Ox O2 Delivery O2 Flow Rate FiO2 03/03/25 17:12 97.7 79 20 100/61 (74) 99 97.7 03/03/25 13:50 Room Air* 0 21 General Appearance: Alert, Oriented X3, Cooperative, No acute distress HEENT: Atraumatic, PERRLA Lungs: Clear to auscultation, Normal air movement Cardiovascular: Normal S1, Normal S2 Skin: Dry, Intact Psych/Mental Status: Mental status NL, Mood NL Medications Current Medications Medications Dose Ordered Sig/Swetha Route Start Time Stop Time Status Last Admin Dose Admin Aspirin 81 mg DAILY PO 03/04/25 06:00 Atorvastatin Calcium 10 mg HS PO 03/03/25 22:00 Ceftriaxone Sodium 50 ml @ 100 mls/hr DAILY@09 IV 03/04/25 06:00 Carvedilol 3.125 mg Q12HR PO 03/03/25 10:00 03/03/25 10:18 3.125 MG Clonidine HCl 0.1 mg Q4HP PRN PO 03/03/25 05:30 Diagnostic Test (Pha) 1 strip IQ4HR 03/03/25 08:00 03/03/25 16:09 1 STRIP Insulin Human Regular IQ4HR SC 03/03/25 08:00 03/03/25 13:14 6 UNITS Dextrose 50 ml UD PRN IV 03/03/25 05:30 Sodium Chloride 10 ml Q8HR IV 03/03/25 06:00 03/03/25 16:09 10 ML Acetaminophen/ Hydrocodone Bitart 1 tab Q4HP PRN PO 03/03/25 05:30 Ondansetron HCl 4 mg Q4HP PRN IV 03/03/25 05:30 Docusate Sodium 100 mg BIDPRN PRN PO 03/03/25 05:30 Acetaminophen 650 mg Q6HP PRN PO 03/03/25 05:30 Nitroglycerin 0.4 mg Q5MINP PRN SL 03/03/25 05:45 Morphine Sulfate 2 mg Q30M PRN IV 03/03/25 05:45 Sodium Chloride 1,000 ml @ 100 mls/hr Q10H IV 03/03/25 11:15 03/03/25 11:38 100 MLS/HR Heparin Sodium/ Dextrose 250 ml @ 9 mls/hr Q24H IV 03/03/25 16:30 03/03/25 17:15 9 MLS/HR Clopidogrel Bisulfate 75 mg DAILY PO 03/04/25 10:00 Laboratory Results Laboratory Tests 03/03/25 06:49 Chemistry Test 03/03/25 01:02 03/03/25 06:49 Calcium Level 9.5 mg/dL (8.7-10.4) 9.6 mg/dL (8.7-10.4) Albumin 4.6 g/dL (3.2-4.8) Total Protein 7.2 g/dL (5.7-8.2) Coagulation Test 03/03/25 06:49 03/03/25 15:06 Prothrombin Time 11.1 sec (9.3-11.8) 11.2 sec (9.3-11.8) Prothrombin Time INR 1.05 (0.9-1.15) 1.06 (0.9-1.15) Activated Partial Thromboplast Time 27.0 SEC (24.5-34.5) 61.9 SEC (24.5-34.5) H Cardiac Markers Test 03/03/25 01:02 B-Type Natriuretic Peptide 90.43 pg/mL (0-100) LFT Test 03/03/25 06:49 Alanine Aminotransferase (ALT) 29 U/L (7-40) Alkaline Phosphatase 76 U/L (46-116) Aspartate Amino Transferase (AST) 37 U/L (13-40) Total Bilirubin 0.6 mg/dL (0.2-1.0) HgA1c, TSH Test 03/03/25 06:49 Hemoglobin A1c 11.7 % A1C (<5.7) H Labs and/or images reviewed: Labs reviewed by me, Image(s) reviewed by me Assessment/Plan Assessment/Plan Impression: -sepsis -probable gastroenteritis -acute kidney injury, vasomotor nephropathy -probable underlying diabetic nephropathy -NSTEMI type 2 -diabetes mellitus, uncontrolled -history of coronary artery disease with previous CABG Plan: -patient is unstable to transfer to [facility] and given troponin elevation, upward trending, hyperkalemia. -cardiology consultation: Continue medical management at this time -nephrology consultation: Continue IV hydration -antibiotic therapy continue Rocephin, add Flagyl -check hemoglobin A1c -regular insulin sliding scale, continue moderate scale q.4 hours given persistent hyperglycemia -repeat troponin in a.m. -potassium lowering agents Critical care time spent with patient discussing and formulating plan of care: 40 minutes. This does not include time spent performing procedures. This medical document was created using an electronic medical record system with [employer] dictation system. Although this document has been carefully reviewed, there may still be some phonetic and typographical errors. These areas are purely typographical due to imperfections of the software programs, and do not reflect any compromise in the patient's medical care. Plan discussed with: Patient, Other (RN) My Orders Orders - YASEMIN DE LEÓN NP Procedure Category Date Status Time Clopidogrel Bisulfate PHA 03/04/25 In Process (Plavix) 10:00 Troponin-I Hs LAB 03/04/25 Verified 04:00 Consistent DIET 03/03/25 Transmitted Carb(Ccho)Diabetes Dinner Drug Screen LAB 03/03/25 Logged 16:51 Date of Service: Mar 03, 2025 Billing Provider: YASEMIN DE LEÓN NP Common Visit Codes: [id number] CARE 30-74 MIN YASEMIN DE LEÓN NP Mar 03, 2025 18:08
[2025-03-03 18:46] LABS: Urine Protein, UAD 1+ (Negative); Urine WBC Clumps PRESENT /hpf (None Seen)
[2025-03-03 18:48] LABS: Protein, Urine 109.6 mg/dL (1-14)
[2025-03-03 18:51] LABS: Cannabinoid Screen, Urine Neg (NEGATIVE); Phencyclidine Screen, Urine Neg (NEGATIVE)
[2025-03-03 18:52] LABS: Amphetamine Screen, Urine Neg (NEGATIVE); Barbiturate Scree,Urine Neg (NEGATIVE); Benzodiazephine Screen, Urine Neg (NEGATIVE); Cocaine Screen, Urine Neg (NEGATIVE); Opiate Scree,Urine Neg (NEGATIVE)
[2025-03-03] MEDS ORDERED: METF-370 PO (18:53)
--- NOTE | 2025-03-03 19:28 | DVHSR ---
APPROVED REPORT EXAM: Two-dimensional and M-mode echocardiogram with Doppler and color Doppler. Blood Pressure: 101/61 mmHg INDICATION NSTEMI RISK FACTORS Height: 5' 7", Weight: 165 DIMENSIONS LVDd3.8 (3.8-5.7cm)LA (2D)3.9 (1.9-4.0cm)Aortic Root3.0 (2.0-3.7cm) LVDs2.5 (2.5-4.0cm)LA (MM) (1.9-4.0cm)Aortic Cusp Exc1.2 (1.5-2.0cm) EF (%) 65.0 (55-70%)Rt. Atrium3.7 (1.9-4.0cm)Asc. Aorta cm IVSd1.3 (0.7-1.1cm)RV (D) (1.8-2.4cm) PWd1.1 (0.7-1.1cm) Mitral Valve MitralMitral Stenosis E wave0.50m/sMV Mean GR.mmHg A wave0.80m/sMV Peak GR.mmHg E/A ratio0.62D MVAcm2 Aortic Valve Aortic ValveAortic Stenosis V10.70m/Kinza Mean GR.5mmHg V21.30m/Kinza Peak GR.7mmHg LVOT Diameter1.8 (1.8-2.4cm)Doppler AVA1.37cm2 Pulmonic Valve V20.70m/s Conclusion Left ventricle: Mild concentric left ventricular hypertrophy was seen. LVEF was 65%. There was no gross wall motion abnormality. Diastolic function was considered normal. Right ventricle was not well visualized. Right ventricle is possibly dilated. Both atria were mildly dilated. Aortic valve was trileaflet. There was no aortic stenosis/insufficiency. There was moderate mitral valve prolapse. There was mild mitral regurgitation. There was trace tricuspid regurgitation. Pulm onary valve was not well visualized. As there was no good tricuspid regurgitation jet, right ventricular systolic pressure could not be es timated. There was no pericardial effusion.
[2025-03-03 20:00] VITALS: PULSE 86
[2025-03-03 20:25] LABS: INR 1.07 (0.9-1.15); Prothrombin Time 11.3 sec (9.3-11.8)
[2025-03-03 20:29] LABS: Partial Thromboplastin Time 97.0 SEC (24.5-34.5)
[2025-03-03 21:00] VITALS: BP 121/77; PULSE 88; RESP 19; TEMP 98; O2SAT 100
[2025-03-03] MEDS: ATORVASTATIN 20 MG TAB PO SCH (21:24)
[2025-03-04] VITALS (7 sets, daily range): BP systolic 110–147; BP diastolic 65–75; PULSE 59–81; RESP 17–20; TEMP 97.5–98.5; O2SAT 93–100
[2025-03-04 04:54] LABS: INR 1.04 (0.9-1.15); Partial Thromboplastin Time 59.5 SEC (24.5-34.5); Prothrombin Time 11.0 sec (9.3-11.8)
[2025-03-04] MEDS: cefTRIAXone 1GM/50ML D5W 50 ML IV SCH (06:35)
[2025-03-04 07:14] LABS: Hematocrit 34.3 % (41.0-53.0); Hemoglobin 11.4 g/dL (13.5-17.5); Mean Corpuscular Hemoglobin 29.7 pg (28.0-32.0); Mean Corpuscular Volume 89.1 fL (80.0-100.0); Nucleated Red Blood Cells % 0.0 %
[2025-03-04 07:32] LABS: Albumin 3.8 g/dL (3.2-4.8); Alkaline Phosphatase 64 U/L (46-116); Anion Gap 12 (5-15); Magnesium 1.9 mg/dL (1.6-2.6); Potassium 4.4 mmol/L (3.5-5.1); Sodium 139 mmol/L (136-145); Total Protein 6.1 g/dL (5.7-8.2)
[2025-03-04 07:33] LABS: Bilirubin, Total 0.8 mg/dL (0.2-1.0)
[2025-03-04 07:34] LABS: BUN/Creatinine Ratio 22.5 (10.0-20.0)
[2025-03-04 07:35] LABS: Alanine Aminotransferase 78 U/L (7-40); Blood Urea Nitrogen 59 mg/dL (9-23); Carbon Dioxide 19 mmol/L (20-31); Chloride 108 mmol/L (98-107); Glucose 113 mg/dL (74-106)
[2025-03-04 07:36] LABS: Calcium 8.4 mg/dL (8.7-10.4)
[2025-03-04] MEDS: CLOPIDOGREL BISULFATE 75 MG TAB PO SCH (08:38)
--- NOTE | 2025-03-04 08:44 | DVHPN2 ---
Progress Note Date Seen: Mar 04, 2025 Medical Necessity Reason Pt with a Central, PICC or Fol: No Subjective Patient reports: No new complaints, Feels better Review of Systems: Deferred Objective vital signs Vital Sign Date Time Temp Pulse Resp B/P (MAP) Pulse Ox O2 Delivery O2 Flow Rate FiO2 03/04/25 08:41 98.5 74 20 135/75 (95) 98 98.5 03/03/25 20:00 Room Air* 0 21 Total Intake and Output 03/03/25 03/03/25 03/04/25 15:00 23:00 07:00 Intake Total 195 ml 1326 ml 450 ml Output Total 400 ml 400 ml Balance 195 ml 926 ml 50 ml medications Current Medications Medications Dose Ordered Sig/Swetha Route Start Time Stop Time Status Last Admin Dose Admin Aspirin 81 mg DAILY PO 03/04/25 06:00 03/04/25 06:37 81 MG Atorvastatin Calcium 10 mg HS PO 03/03/25 22:00 03/03/25 21:24 10 MG Ceftriaxone Sodium 50 ml @ 100 mls/hr DAILY@09 IV 03/04/25 06:00 03/04/25 06:35 100 MLS/HR Carvedilol 3.125 mg Q12HR PO 03/03/25 10:00 03/03/25 21:24 3.125 MG Clonidine HCl 0.1 mg Q4HP PRN PO 03/03/25 05:30 Diagnostic Test (Pha) 1 strip IQ4HR 03/03/25 08:00 03/04/25 04:07 1 STRIP Insulin Human Regular IQ4HR SC 03/03/25 08:00 03/03/25 13:14 6 UNITS Dextrose 50 ml UD PRN IV 03/03/25 05:30 Sodium Chloride 10 ml Q8HR IV 03/03/25 06:00 03/04/25 06:00 10 ML Acetaminophen/ Hydrocodone Bitart 1 tab Q4HP PRN PO 03/03/25 05:30 Ondansetron HCl 4 mg Q4HP PRN IV 03/03/25 05:30 Docusate Sodium 100 mg BIDPRN PRN PO 03/03/25 05:30 Acetaminophen 650 mg Q6HP PRN PO 03/03/25 05:30 Nitroglycerin 0.4 mg Q5MINP PRN SL 03/03/25 05:45 Morphine Sulfate 2 mg Q30M PRN IV 03/03/25 05:45 Sodium Chloride 1,000 ml @ 100 mls/hr Q10H IV 03/03/25 11:15 03/03/25 11:38 100 MLS/HR Clopidogrel Bisulfate 75 mg DAILY PO 03/04/25 10:00 Metronidazole 100 ml @ 100 mls/hr Q8HR IV 03/03/25 22:00 03/04/25 05:18 100 MLS/HR Heparin Sodium/ Dextrose 250 ml @ 6 mls/hr Q24H IV 03/03/25 21:30 03/04/25 05:06 6 MLS/HR Examination: GENERAL:Normal, HEENT:Normal, NECK:Normal, LUNGS:Abnormal, CVS:Normal, ABDOMEN:Normal, MSK:Abnormal, SKIN:Abnormal, NEURO:Normal, :Normal laboratory and microbiology Laboratory Tests 03/04/25 06:13 Test 03/04/25 06:13 Range/Units Serum Glucose 113 #H 74-106 mg/dL Microbiology Date/Time Source Procedure Growth Status 03/03/25 01:02 Blood Blood Culture - Preliminary NO GROWTH AFTER 24 HOURS OF INCUBATION. Resulted Problem List/Assessment/Plan Problem List/Assessment/Plan Acute kidney injury likely hemodynamic etiology unknown baseline renal function Underlying Chronic kidney disease secondary to diabetic nephropathy however no baseline available patient follows [facility] Nausea vomiting diarrhea for one day Coronary artery disease status post CABG Type 2 diabetes for 23 years NSTEMI Punctate nonobstructing right renal calculus Recommendations NS IV at 100 cc Urine workup as ordered CT scan abdomen pelvis showed no hydronephrosis Nonoliguric for now We will follow closely Renal function improving slowly Plan discussed with: Patient My Orders My Orders Orders - CLAYTON CABA MD Procedure Category Date Status Time Sodium Chloride 0.9% PHA 03/03/25 In Process 11:15 Strict I & O VAZQUEZ 03/03/25 In Process 11:13 Bladder Scan ED NURSING 03/03/25 Transmitted Basic Metabolic Panel LAB 03/05/25 Verified 05:00 Basic Metabolic Panel LAB 03/06/25 Verified 05:00 Basic Metabolic Panel LAB 03/07/25 Verified 05:00 Basic Metabolic Panel LAB 03/08/25 Verified 05:00 Basic Metabolic Panel LAB 03/09/25 Verified 05:00 Basic Metabolic Panel LAB 03/10/25 Verified 05:00 CLAYTON CABA MD Mar 04, 2025 08:44
[2025-03-04 09:08] LABS: INR 1.05 (0.9-1.15); Partial Thromboplastin Time 56.4 SEC (24.5-34.5); Prothrombin Time 11.1 sec (9.3-11.8)
[2025-03-04 11:22] LABS: INR 1.03 (0.9-1.15); Partial Thromboplastin Time 51.8 SEC (24.5-34.5); Prothrombin Time 10.9 sec (9.3-11.8)
[2025-03-04] MEDS: HYDROcodone-ACET 5/325MG TAB PO PRN (11:43)
--- NOTE | 2025-03-04 12:21 | DVHPN2 ---
Consult Progress Note Subjective Patient reports: No new complaints Review of Systems: CVS:Normal (Denies CP, Palpitations, SOB), GI:Abnormal (abdominal pain, diarrhea) Objective vital signs Vital Sign Date Time Temp Pulse Resp B/P (MAP) Pulse Ox O2 Delivery O2 Flow Rate FiO2 03/04/25 08:41 98.5 74 20 135/75 (95) 98 98.5 03/04/25 08:00 Room Air* 0 21 Total Intake and Output 03/03/25 03/03/25 03/04/25 15:00 23:00 07:00 Intake Total 195 ml 1326 ml 450 ml Output Total 400 ml 400 ml Balance 195 ml 926 ml 50 ml medications Current Medications Medications Dose Ordered Sig/Swetha Route Start Time Stop Time Status Last Admin Dose Admin Aspirin 81 mg DAILY PO 03/04/25 06:00 03/04/25 08:38 81 MG Atorvastatin Calcium 10 mg HS PO 03/03/25 22:00 03/03/25 21:24 10 MG Ceftriaxone Sodium 50 ml @ 100 mls/hr DAILY@09 IV 03/04/25 06:00 03/04/25 08:37 100 MLS/HR Carvedilol 3.125 mg Q12HR PO 03/03/25 10:00 03/04/25 08:38 3.125 MG Clonidine HCl 0.1 mg Q4HP PRN PO 03/03/25 05:30 Diagnostic Test (Pha) 1 strip IQ4HR 03/03/25 08:00 03/04/25 11:43 1 STRIP Insulin Human Regular IQ4HR SC 03/03/25 08:00 03/04/25 11:44 2 UNITS Dextrose 50 ml UD PRN IV 03/03/25 05:30 Sodium Chloride 10 ml Q8HR IV 03/03/25 06:00 03/04/25 06:00 10 ML Acetaminophen/ Hydrocodone Bitart 1 tab Q4HP PRN PO 03/03/25 05:30 03/04/25 11:43 1 TAB Ondansetron HCl 4 mg Q4HP PRN IV 03/03/25 05:30 Docusate Sodium 100 mg BIDPRN PRN PO 03/03/25 05:30 Acetaminophen 650 mg Q6HP PRN PO 03/03/25 05:30 Nitroglycerin 0.4 mg Q5MINP PRN SL 03/03/25 05:45 Morphine Sulfate 2 mg Q30M PRN IV 03/03/25 05:45 Sodium Chloride 1,000 ml @ 100 mls/hr Q10H IV 03/03/25 11:15 03/03/25 11:38 100 MLS/HR Clopidogrel Bisulfate 75 mg DAILY PO 03/04/25 10:00 03/04/25 08:38 75 MG Metronidazole 100 ml @ 100 mls/hr Q8HR IV 03/03/25 22:00 03/04/25 05:18 100 MLS/HR Heparin Sodium/ Dextrose 250 ml @ 6 mls/hr Q24H IV 03/03/25 21:30 03/04/25 05:06 6 MLS/HR laboratory and microbiology Laboratory Tests 03/04/25 06:13 Test 03/04/25 06:13 Range/Units Serum Glucose 113 #H 74-106 mg/dL Problem List/Assessment/Plan Problem List/Assessment/Plan Assessment * NSTEMI - Denies CP. Known CAD. Continue on heparin drip times 48 hours. With normal EF, no gross wall motion abnormalities. Moderate MVP.. Continue aspirin and statin. Continue medical management for now given elevated creatinine. Patient may need ischemic workup in the future. * CAD S/P 3V CABG 2022 continue aspirin and statin * KAILYN on CKD, Hyperkalemia - Nephrology board, improving. * Uncontrolled Diabetes management per [facility] team * HTN - stable on current regimen, continue trending * Diarrhea, N/V - management per primary team. * Medication noncompliance - advised compliance Case Discussed with Dr Guthrie. Plan of care discussed with patient, echo reviewed, EF normal, no gross wall abnormalities noted, moderate mitral valve prolapse. Likely demand ischemic, patient recommended ischemic workup in the future once kidney function improves, patient at this time refuses any type of exam/procedure as states he has no cardiac symptoms and would like to follow up with his own cardiopulmonary technician and eeg tech at [facility] for which he had an upcoming appointment. Continue heparin drip for 48 hours, may consider starting on Plavix p.o. upon DC. Continue medical management for now. This medical document was created using an electronic medical record system with voice recognition software and computerized dictation system. Although this document has been carefully reviewed, there might still be some phonetic and typographical errors. Occasional wrong-word or ``sound-alike substitutions may have occurred due to the inherent limitations of voice recognition software. These areas are purely typographical due to imperfections of the software programs and do not reflect any compromise in the patient's medical care. Please read the chart carefully and recognize, using context, where these substitutions have occurred. Thank you for allowing me to participate in the management of this patient. The treatment plan was discussed with and agreed upon by patient/family including requesting consultants and ordering of imaging/procedures. Plan discussed with: Patient Date of Service: Mar 04, 2025 Billing Provider: MI MIDDLETON Common Visit Codes: [id number] INP/OBS CARE(HIGH) MI MIDDLETON Mar 04, 2025 12:21
[2025-03-04] MEDS ORDERED: CALCIUM CARB 500 MG CHEW TAB PO PRN (14:30)
--- NOTE | 2025-03-04 15:44 | DVHDS2 ---
Discharge Summary Date of Admission Mar 03, 2025 at 05:42 Date of Discharge: Mar 04, 2025 Admitting Diagnosis Acute renal failure Labs/Diagnostic Data: Laboratory Results Test 03/04/25 15:27 03/04/25 11:36 03/04/25 06:13 03/04/25 03:47 POC Glucose 145 mg/dl (70-106) White Blood Count 10.5 10^3/uL (4.4-10.8) Red Blood Count 3.85 10^6/uL (4.5-5.90) Hemoglobin 11.4 g/dL (13.5-17.5) Hematocrit 34.3 % (41.0-53.0) Mean Corpuscular Volume 89.1 fL (80.0-100.0) Mean Corpuscular Hemoglobin 29.7 pg (28.0-32.0) Mean Corpuscular Hemoglobin Concent 33.3 g/dL (32.0-36.0) Red Cell Distribution Width 14.5 % (11.8-14.3) Platelet Count 129 10^3/uL (140-450) Mean Platelet Volume 10.4 fL (6.9-10.8) Neutrophils (%) (Auto) 69.4 % (37.0-80.0) Lymphocytes (%) (Auto) 24.1 % (10.0-50.0) Monocytes (%) (Auto) 5.2 % (0.0-12.0) Eosinophils (%) (Auto) 0.9 % (0.0-7.0) Basophils (%) (Auto) 0.4 % (0.0-2.0) Neutrophils # (Auto) 7.3 10 ^3/uL (1.6-8.6) Lymphocytes # (Auto) 2.5 10 ^3/uL (0.4-5.4) Monocytes # (Auto) 0.5 10 ^3/uL (0-1.3) Eosinophils # (Auto) 0.1 10 ^3/uL (0-0.8) Basophils # (Auto) 0 10 ^3/uL (0-0.2) Nucleated Red Blood Cells 0.0 % Sodium Level 139 mmol/L (136-145) Potassium Level 4.4 mmol/L (3.5-5.1) Chloride Level 108 mmol/L (98-107) Carbon Dioxide Level 19 mmol/L (20-31) Anion Gap 12 (5-15) Blood Urea Nitrogen 59 mg/dL (9-23) Creatinine 2.62 mg/dL (0.700-1.30) Glomerular Filtration Rate Calc 26 mL/min (>90) BUN/Creatinine Ratio 22.5 (10.0-20.0) Serum Glucose 113 mg/dL (74-106) Calcium Level 8.4 mg/dL (8.7-10.4) Phosphorus Level 3.2 mg/dL (2.4-5.1) Magnesium Level 1.9 mg/dL (1.6-2.6) Total Bilirubin 0.8 mg/dL (0.2-1.0) Aspartate Amino Transferase (AST) 95 U/L (13-40) Alanine Aminotransferase (ALT) 78 U/L (7-40) Alkaline Phosphatase 64 U/L (46-116) Total Protein 6.1 g/dL (5.7-8.2) Albumin 3.8 g/dL (3.2-4.8) Troponin I High Sensitivity 3215 ng/L (</=54) Test 03/03/25 18:00 03/03/25 06:49 03/03/25 03:10 03/03/25 01:02 Urine Color Yellow (Yellow) Urine Clarity Turbid (Clear) Urine pH 5.0 (5.0-9.0) Urine Specific [place] 1.015 (1.001-1.035) Urine Protein 1+ (Negative) Urine Ketones 1+ (Negative) Urine Blood 1+ /uL (Negative) Urine Nitrite Negative (Negative) Urine Bilirubin Negative (Negative) Urine Urobilinogen Normal mg/dL (Negative) Urine Leukocyte Esterase 3+ /uL (Negative) Urine RBC 5 /hpf (0 - 3) Urine WBC Clumps Present /hpf (None Seen) Urine Microscopic WBC 88 /HPF (0-3) Urine Squamous Epithelial Cells Few /hpf (<5) Urine Bacteria None seen /hpf (None Seen) Urine Mucus Few (None Seen) Urine Creatinine 216.32 mg/dL (30.0-125.0) Urine Sodium 21 mmol/L (40-220) Urine Glucose 2+ mg/dL (Normal) Urine Total Protein 109.6 mg/dL (1-14) Urine Opiates Screen Neg (NEGATIVE) Urine Fentanyl Screen Neg (NEGATIVE) Urine Barbiturates Screen Neg (NEGATIVE) Urine Phencyclidine Screen Neg (NEGATIVE) Urine Amphetamines Screen Neg (NEGATIVE) Urine Benzodiazepines Screen Neg (NEGATIVE) Urine Cocaine Screen Neg (NEGATIVE) Urine Cannabinoids Screen Neg (NEGATIVE) Hemoglobin A1c 11.7 % A1C (<5.7) Lactic Acid Level 3.9 mmol/L (0.4-2.0) B-Type Natriuretic Peptide 90.43 pg/mL (0-100) Beta-Hydroxybutyric Acid 0.576 mmol/L (< 0.4) Other Laboratory Tests 03/04/25 06:13 Brief Hx & Hospital Course: History of Present Illness The patient is a 65-year-old male with past medical history of Coronary artery disease diabetes mellitus presented to [facility] ED for evaluation of hyperglycemia. As reported, patient was noted to be altered, so EMS were called. Patient reports he has been feeling generalized weakness, associated with nausea, vomiting, and diarrhea, getting worse that prompted this visit. Patient was seen and evaluated in the ED, laboratory data shows WBC 12.9, platelets 171, sodium 139, potassium 6.2, BUN 50, creatinine 4.10, glucose 366, calcium 9.5, BNP 90.43, acetone 0.576, lactic acid 3.1, troponin 820 trending up, blood pressure 124/75, heart rate 98, temperature 98.1 F, O2 saturation 97% room..8, BNP 139.75, troponin 173, blood pressure 121/61, heart rate 83, temperature 98.5 F, O2 saturation 96% room air. Please see medication orders section in the computer. On my assessment, patient denied chest pain, no headache, no dizziness, currently on oxygen, no nausea, no vomiting, no fever, no chills. Patient was admitted for further evaluation and medical management. Course of hospitalization: Patient reports that he has had poor oral intake as well as diarrhea for approximately 4-5 days. Patient was given aggressive IV hydration, with nephrology consultation being placed. Patient's hyperkalemia has improved. Patient's BUN and creatinine is also decreasing with the patient having increased urine output. Patient was noted to have serial troponins that has been trending up. Patient does have a history of CABG two years ago in addition to having previous coronary stents being placed. Patient's blood sugars has been elevated, now controlled with regular insulin sliding scale. Patient's hemoglobin A1c was noted to be 11.7. Patient is currently asymptomatic. Renal function is improving. Cardiology consultation was placed, in his refrain for any ischemia workup until renal function has improved. Patient is agreeable to be discharged back to [facility]. At this time he will continue with heparin drip, dual antiplatelet therapy, as well as IV hydration. Physical examination General: Alert and Oriented x3. No acute distress. Well-nourished. Eyes: EOMI. Anicteric. HENT: Moist mucous membranes. Lungs: Clear to auscultation bilaterally. No accessory muscle use. Cardiovascular: Regular rate and rhythm. No murmur. No JVD. Abdomen: Soft, non-tender and non-distended. No palpable masses. Extremities: No edema. Non-tender. Skin: No rashes or lesions. Warm. Neurologic: No focal neurological deficits. CN II-XII grossly intact, but not individually tested. Psychiatric: Cooperative. Appropriate mood and affect. Total time spent with patient discussing and formulating plan of care: 35 minutes. This medical document was created using an electronic medical record system with [employer] dictation system. Although this document has been carefully reviewed, there may still be some phonetic and typographical errors. These areas are purely typographical due to imperfections of the software programs, and do not reflect any compromise in the patient's medical care. Consults/Reason for consult Nephrology: Acute kidney injury Cardiology: NSTEMI Condition at Discharge: Guarded Final Diagnosis/Problems List NSTEMI, probably type 1 Acute kidney injury Secondary diagnosis: -sepsis -probable gastroenteritis -acute kidney injury, vasomotor nephropathy -probable underlying diabetic nephropathy -NSTEMI type 2 -diabetes mellitus, uncontrolled -history of coronary artery disease with previous CABG Discharge Disposition: Acute Care Facility Discharge Instruct/Medications Diet: Consistent carbohydrate, Cardiac 2g Na,low cholest, Renal Activity: No Restrictions, As Tolerated Follow Up/Referral: Per accepting providers Medications: Refer to medication reconciliation form Scheduled Metformin Hydrochloride (Metformin Hcl), 1,000 MG PO BID, (Reported) 36 Discharge Statement: "Patient was advised to return to the ER or call 911 if any headaches, dizziness, shortness of breath, chest pain, abdominal pain, bleeding, fevers, or worsening of medical condition. Patient was counseled about treatment plan, medications, possible side effects, patientverbalized understanding. All questions were answered to the best of my ability. This discharge took greater then 30 minutes in planning, reviewing documentation, counseling the patient, and discussing with other team members." ASSESSMENT ASSESSMENT Assessment NSTEMI, probably type 1 Acute kidney injury Date of Service: Mar 04, 2025 Billing Provider: YASEMIN DE LEÓN NP Common Visit Codes: 59907-CAG/OBS DISCH DAY >30min YASEMIN DE LEÓN NP Mar 04, 2025 15:44
[2025-03-04 15:56] LABS: INR 1.02 (0.9-1.15); Partial Thromboplastin Time 43.4 SEC (24.5-34.5); Prothrombin Time 10.8 sec (9.3-11.8)
--- NOTE | 2025-03-04 16:20 | CONS ---
Pharmacy Clinical Information: INCREASE HEPARIN DRIP RATE TO 800 UNITS/HR PER APTT OF 43.4 NEXT APTT DRAW SCHEDULED FOR 2230 PER RX PROTOCOL ANDRÉS FOOTE CONFIRMED AND READ BACK Sheryl Ferris PHARMACIST Mar 04, 2025 16:20
[2025-03-04] MEDS: HEPARIN DRIP/D5W 100UNITS/ML 250 ML IV SCH (16:50)
[2025-03-04] MEDS: PANTOPRAZOLE 40 MG/10 ML VIAL INJ IV ONE (17:00)
--- NOTE | 2025-03-05 07:34 | ECG ---
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
--- NOTE | 2025-03-05 12:52 | ECG ---
[facility] Test Date: 2025-03-03 Test Time: 02:37:57 Pat Name: LISANDRO RICE Department: ED Room: [facility]8T A Gender: M Platemaker: am : 1960 Requested By: ANDREW HARRISON Order Number: [id number] Reading MD: Carlos Tristan Measurements Intervals [place] Rate: 97 P: 54 [place]: 170 QRS: 36 QRSD: 88 T: 48 QT: 337 QTc: 428 Interpretive Statements Sinus rhythm Minimal ST elevation, inferior leads Electronically Signed On 03-05-2025 19:25:15 PDT by Carlos Tristan Please click the below link to view image of tracing.
--- NOTE | 2025-03-05 15:23 | ECG ---
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
== END 2025-03-04 20:15 | disposition short-term general hospital (02) | DRG 871 ==
LOC: ER 22:07 → EDBD 22:07 → OVERFLOW 03-03 05:42 → TELE-WESTW 03-03 13:58
PROVIDERS: ADMIT Nurse Practitioner Family; ATTEND Nurse Practitioner Family
DX: A41.9 Sepsis, unspecified organism (principal); I21.4 Non-ST elevation (NSTEMI) myocardial infarction; N17.0 Acute kidney failure with tubular necrosis; N20.0 Calculus of kidney; N18.9 Chronic kidney disease, unspecified; K52.9 Noninfective gastroenteritis and colitis, unspecified; E11.65 Type 2 diabetes mellitus with hyperglycemia; I25.10 Atherosclerotic heart disease of native coronary artery without angina pectoris; E11.22 Type 2 diabetes mellitus with diabetic chronic kidney disease; E87.5 Hyperkalemia; I12.9 Hypertensive chronic kidney disease with stage 1 through stage 4 chronic kidney disease, or unspecified chronic kidney disease; E78.5 Hyperlipidemia, unspecified; Z95.1 Presence of aortocoronary bypass graft; Z91.148 Patient's other noncompliance with medication regimen for other reason; Z95.5 Presence of coronary angioplasty implant and graft; Z79.899 Other long term (current) drug therapy
CPT/HCPCS: 36415; 36600; 71045; 74176; 80048; 80053; 80307; 81001; 82010; 82570; 82805; 82962; 83036; 83605; 83735; 83880; 84100; 84132; 84156; 84300; 84484; 85025; 85610; 85730; 87040; 93005; 93306; 94640; 96365; 96375; 99291; G0378; J1815; J2470; J3490